=== PATIENT | male | born 1990 | race African-American/Black ===

== ENCOUNTER 2019-04-18 14:20 | Emergency (ER) | payer MEDICAID, OTHER ==
[~2019-04-18] VITALS: Ht 188 cm; Wt 99.8 kg
[2019-04-18] MEDS ORDERED: SODIUM CHLORIDE 0.9% 1,000 ML IV ONE (14:40)
[2019-04-18] MEDS ORDERED: LORazepam 2MG/ML-1ML VIAL IV ONE (14:45)
[2019-04-18 14:50] LABS: Basophils # (auto) 0.1 uL; Eosinophils # (auto) 0.1 uL; Eosinophils % (auto) 1.3 % (0.0-7.0); Hematocrit 49.6 % (41.0-53.0); Hemoglobin 16.6 g/dL (13.5-17.5); Lymphocytes # (auto) 2.1 uL; Lymphocytes % (auto) 24.1 % (10.0-50.0); Mean Corpuscular Hemoglobin 28.3 pg (28.0-32.0); Mean Corpuscular Hgb Conc. 33.5 g/dL (32.0-36.0); Mean Corpuscular Volume 84.4 fL (80.0-100.0); Monocytes # (auto) 0.9 uL; Neutrophils # (auto) 5.6 uL; Neutrophils % (auto) 63.6 % (37.0-80.0); Nucleated Red Blood Cells % 0.2 %; Platelet Count (auto) 212 10^3/uL (140-450); Red Blood Cells 5.87 10^6/uL (4.5-5.90); Red Cell Distribution Width 14.4 % (11.8-14.3); White Blood Cell 8.8 10^3/uL (4.4-10.8)
[2019-04-18 15:13] LABS: Albumin 4.7 g/dL (3.4-5.0); BUN/Creatinine Ratio 6.1; Calcium 9.5 mg/dL (8.5-10.1); Potassium 3.1 mmol/L (3.5-5.1)
[2019-04-18 15:15] LABS: Blood Alcohol < 3.0 mg/dL (0-5)
[2019-04-18 15:16] LABS: Bilirubin, Total 0.8 mg/dL (0.2-1.0); Total Protein 9.2 g/dL (6.4-8.2)
[2019-04-18] MEDS ORDERED: cloNIDine HCL 0.1 MG TAB PO ONE (15:30)
[2019-04-18] MEDS ORDERED: cloNIDine HCL 0.1 MG TAB ONE (15:31)
[2019-04-18] MEDS ORDERED: POTASSIUM CHL 20 Meq TABLET PO ONE (16:15)
[2019-04-18 16:39] LABS: Alcohol, Urine < 3.0 mg/dL (0-5); Amphetamine Screen, Urine POSITIVE (NEGATIVE); Barbiturate Scree,Urine NEGATIVE (NEGATIVE); Benzodiazephine Screen, Urine NEGATIVE (NEGATIVE); Cannabinoid Screen, Urine NEGATIVE (NEGATIVE); Cocaine Screen, Urine NEGATIVE (NEGATIVE); Phencyclidine Screen, Urine NEGATIVE (NEGATIVE)
[2019-04-18 16:45] VITALS: BP 149/74
[2019-04-18 16:45] LABS: Urine Bacteria NONE SEEN /hpf (None Seen); Urine Blood Negative /uL (Negative); Urine Specific Gravity 1.005 (1.001-1.035); Urine WBC <1 /hpf (0 - 3)
[2019-04-18 16:46] LABS: Opiate Scree,Urine NEGATIVE (NEGATIVE)
== END 2019-04-18 17:31 | disposition home or self-care (01) ==
LOC: ER 14:20 → EDBD 14:20 → ER 17:31
DX: F15.10 Other stimulant abuse, uncomplicated (principal); I16.0 Hypertensive urgency; F12.10 Cannabis abuse, uncomplicated; F17.210 Nicotine dependence, cigarettes, uncomplicated
CPT/HCPCS: 36415; 80053; 80307; 80320; 81001; 84484; 85025; 93005; 94761; 96374; 99284; J2060; J7030